=== PATIENT | female | born 1945 | race Caucasian/White ===

== ENCOUNTER 2023-05-24 08:29 | Day surgery (SDC) | payer MEDICARE, SELFPAY ==
[2023-05-17 10:52] VITALS: BMI 28.7
--- NOTE | 2023-05-21 08:08 | MHC.SHP ---
Pre-Procedural Eval Section A Date of Service: 05/21/23 The patient is an INPATIENT: No Changes since office visit: No Cold of Flu in the past 2 weeks, No New Medical Problems, No Changes in Medication and No Patient answered all questions The History & Physical has been completed within 30 days and I have reviewed it.: Yes Section B Chief Complaint: Age-related nuclear cataract, right eye Allergies: Allergies Allergy/AdvReac Type Severity Reaction Status Date / Time nut - unspecified Allergy Unknown Verified 05/17/23 10:46 Plan Diagnosis/Plan: Unchanged I have reviewed the history and physical and performed a pertinent physical examination on my patient. No changes have occurred unless specified. Time Spent With Patient Time: Total time managing care of this patient today ____ minutes.
--- NOTE | 2023-05-21 10:35 | P.CONAN_ITS ---
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 If so, by whom?: No Advance Directives: No Advance Directives Information Provided: Yes Advance Directives on File: No Recently lost weight without trying: No Eating poorly because of decreased appetite: No Nutrition Risks: No Nutritional Risk Patient : No : No Poor oral hygiene: No Meds Allergies Allergy/AdvReac Type Severity Reaction Status Date / Time nut - unspecified Allergy Unknown Verified 05/17/23 10:46 Home Medications Medication Instructions Recorded Confirmed Last Taken Type aspirin 81 mg tablet,delayed 81 mg PO DAILY 05/17/23 05/17/23 Unknown History release lisinopril 20 mg tablet 20 mg PO DAILY 05/17/23 05/17/23 Unknown History multivitamin 1 tab PO DAILY 05/17/23 05/17/23 Unknown History rosuvastatin 20 mg tablet 20 mg PO DAILY 05/17/23 05/17/23 Unknown History Exam Exam Date and Time: May 21, 2023 1035 Height,Weight and Vital Signs: Height 5 ft 1 in Weight 68.946 kg Assessment and Plan Assessment Anesthesia Assessment: Chart Reviewed Documented by User: Mireya Mccartney MD 05/24/23 10:46 [facility] Past Medical History Medical History Chronic otitis externa Diverticulosis Glucose intolerance HTN (hypertension) Hypercholesteremia Syncope TIA (transient ischemic attack) Surgical History Surgical History H/O colonoscopy Hx of appendectomy History of Problems with Anesthesia: No Social History Social History 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 If so, by whom?: No Advance Directives: No Advance Directives Information Provided: Yes Advance Directives on File: No Recently lost weight without trying: No Eating poorly because of decreased appetite: No Nutrition Risks: No Nutritional Risk Patient : No : No Poor oral hygiene: No Meds Allergies Allergy/AdvReac Type Severity Reaction Status Date / Time nut - unspecified Allergy Unknown Verified 05/17/23 10:46 Home Medications Medication Instructions Recorded Confirmed Last Taken Type aspirin 81 mg tablet,delayed 81 mg PO DAILY 05/17/23 05/17/23 Unknown History release lisinopril 20 mg tablet 20 mg PO DAILY 05/17/23 05/17/23 Unknown History multivitamin 1 tab PO DAILY 05/17/23 05/17/23 Unknown History rosuvastatin 20 mg tablet 20 mg PO DAILY 05/17/23 05/17/23 Unknown History Exam Airway Mallampati Class: III TM Dist: >3cm Neck ROM: Full Loose/Missing/Broken Teeth: No Heart: RRR Lungs: CTA Assessment and Plan Assessment Anesthesia Assessment: Anesthesia Plan Discussed Final Anesthetic Review History of Problems with Anesthesia: No NPO: Yes ASA Class: II Final Preanesthetic Review: Meds/Allgs Chart Reviewed, Consent Obtained/Reviewed and Anes Risks/Benef Reviewed Patient Risk: Low Procedure Risk: Low Anesthetic Plan Anesthetic Plan: MAC: Disposition: Standard PACU
[2023-05-24 10:25] VITALS: BP 194/88; PULSE 83; RESP 16; TEMP 36.8; O2SAT 96
--- NOTE | 2023-05-24 11:16 | HO.PNOPHT ---
Ophthalmology Procedure Procedure Date of Service: 05/24/23 Ophthalmology Viscoelastic: Healjacqueline Reyest Dual Pack Pro Ophthalmology Lenses: TECNIS [id number] (15.5) Procedure Notes: PREOPERATIVE DIAGNOSIS: Decreased visual acuity right eye secondary to cataract POSTOPERATIVE DIAGNOSIS: Same PROCEDURE: Right cataract extraction with intraocular lens insertion SURGEON: Hans Vann M.D. ANESTHESIA: Topical/MAC ESTIMATED BLOOD LOSS: None COMPLICATIONS: None After obtaining informed consent, the patient was brought to the operating room suite and placed in the supine position. After adequate sedation per anesthesia, topical drops of Tetracaine were given to the right eye. The eye was then prepped and draped in the usual sterile fashion. The operating room microscope was then positioned over the operative eye and a lid speculum placed. A paracentesis was created. Viscoelastic was then instilled into the anterior chamber. A three plane incision was then created temporally, utilizing a 2.85 mm keratome. Capsulotomy forceps were then utilized to create a circular tear capsulotomy. Hydrodissection and hydrodelineation were carried out until adequate mobilization of the nucleus occurred. Phacoemulsification was then utilized to remove the dense central nucleus followed by removal of the cortical material utilizing the automated aspiration irrigation unit. Viscoelastic was instilled into the posterior capsular bag followed by placement of a posterior chamber intraocular lens without difficulty. The residual Viscoelastic was then removed utilizing the automated IA machine. The wound was checked and found to be watertight. The patient tolerated the procedure well and the lid speculum was removed. Intracameral injection of Vigamox 0.1 mL followed by a subtenon injection of Kenalog-40 0.2 mL were administered. The patient will be seen in the a.m.
[2023-05-24 11:42] VITALS: BP 147/87; PULSE 76; RESP 16; TEMP 36.3; O2SAT 97
== END 2023-05-24 12:07 | disposition home or self-care (01) ==
PROVIDERS: PCP Internal Medicine; Visit Provider Ophthalmology
PROC: (CPT 66985; principal; 2023-05-24 11:20)
DX: H25.11 Age-related nuclear cataract, right eye (principal); H54.7 Unspecified visual loss; I10 Essential (primary) hypertension; E78.00 Pure hypercholesterolemia, unspecified; Z86.73 Personal history of transient ischemic attack (TIA), and cerebral infarction without residual deficits; Z87.891 Personal history of nicotine dependence; Z79.82 Long term (current) use of aspirin; Z79.899 Other long term (current) drug therapy; Z79.02 Long term (current) use of antithrombotics/antiplatelets
CPT/HCPCS: 66984; J2250; J3010; J3301; V2632

== ENCOUNTER 2023-06-07 07:59 | Day surgery (SDC) | payer MEDICARE, SELFPAY ==
[2023-05-17 10:56] VITALS: BMI 28.7
--- NOTE | 2023-06-04 08:07 | MHC.SHP ---
Pre-Procedural Eval Section A Date of Service: 06/04/23 The patient is an INPATIENT: No Changes since office visit: No Cold of Flu in the past 2 weeks, No New Medical Problems, No Changes in Medication and No Patient answered all questions The History & Physical has been completed within 30 days and I have reviewed it.: Yes Section B Chief Complaint: Age-related nuclear cataract, left eye Allergies: Allergies Allergy/AdvReac Type Severity Reaction Status Date / Time nut - unspecified Allergy Unknown Verified 05/17/23 10:46 Plan Diagnosis/Plan: Unchanged I have reviewed the history and physical and performed a pertinent physical examination on my patient. No changes have occurred unless specified. Time Spent With Patient Time: Total time managing care of this patient today ____ minutes.
--- NOTE | 2023-06-04 14:52 | P.CONAN_ITS ---
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 If so, by whom?: No Advance Directives: No Advance Directives Information Provided: Yes Advance Directives on File: No Recently lost weight without trying: No Eating poorly because of decreased appetite: No Nutrition Risks: No Nutritional Risk Patient : No : No Poor oral hygiene: No Meds Allergies Allergy/AdvReac Type Severity Reaction Status Date / Time nut - unspecified Allergy Unknown Verified 05/17/23 10:46 Home Medications Medication Instructions Recorded Confirmed Last Taken Type aspirin 81 mg tablet,delayed 81 mg PO DAILY 05/17/23 05/17/23 Unknown History release lisinopril 20 mg tablet 20 mg PO DAILY 05/17/23 05/17/23 Unknown History multivitamin 1 tab PO DAILY 05/17/23 05/17/23 Unknown History rosuvastatin 20 mg tablet 20 mg PO DAILY 05/17/23 05/17/23 Unknown History Exam Exam Date and Time: June 04, 2023 1452 Height,Weight and Vital Signs: Height 5 ft 1 in Weight 68.946 kg Assessment and Plan Assessment Anesthesia Assessment: Chart Reviewed Final Anesthetic Review History of Problems with Anesthesia: No
--- NOTE | 2023-06-07 08:57 | PC.NURSE ---
Dr. Tran aware that patient stopped her blood pressure and cholesterol meds approx. one week ago. I was sick and taking medications from my doctor and didn't want to mix them. Okay to proceed per doctor.
[2023-06-07 08:58] VITALS: BP 163/75; PULSE 68; RESP 18; TEMP 36.6; O2SAT 98
[2023-06-07] MEDS: Tetracaine HCl/PF 0.5% Oph Sol 4 ML DROPS 1 DROP EYE-LEFT (09:00)
[2023-06-07] MEDS: Cyclopentolate 1 % Ophth Sol 2 ML DRPBTL 1 DROP EYE-LEFT ×3 (09:00→09:10)
[2023-06-07] MEDS: Ketorolac Tromethamine 0.5% Op 5 ML DROPS 1 DROP EYE-LEFT ×3 (09:00→09:10)
[2023-06-07] MEDS: Phenylephrine HCL 2.5% Oph SoL 2 ML BOTTLE 1 DROP EYE-LEFT ×3 (09:00→09:10)
--- NOTE | 2023-06-07 09:00 | HO.ANESPROP2 ---
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 If so, by whom?: No Advance Directives: No Advance Directives Information Provided: Yes Advance Directives on File: No Recently lost weight without trying: No Eating poorly because of decreased appetite: No Nutrition Risks: No Nutritional Risk Patient : No : No Poor oral hygiene: No Meds Allergies Allergy/AdvReac Type Severity Reaction Status Date / Time nut - unspecified Allergy Unknown Verified 05/17/23 10:46 Active Medications: Current Medications Lactated Ringer's (Lr) 500 mls @ 50 mls/hr IV .Q10H JAYDA Stop: 06/07/23 18:44 Povidone Iodine (Povidone Iodine 5 % Ophth Soln 30 Ml Bottle) 1 appl EYE-LEFT PREOP PRN PRN Reason: Pre-Op Surgical Implant Prophy Home Medications Medication Instructions Recorded Confirmed Last Taken Type aspirin 81 mg tablet,delayed 81 mg PO DAILY 05/17/23 05/17/23 Unknown History release lisinopril 20 mg tablet 20 mg PO DAILY 05/17/23 05/17/23 Unknown History multivitamin 1 tab PO DAILY 05/17/23 05/17/23 Unknown History rosuvastatin 20 mg tablet 20 mg PO DAILY 05/17/23 05/17/23 Unknown History Exam Exam Date and Time: June 07, 2023 0900 Height,Weight and Vital Signs: Height 5 ft 1 in Weight 68.946 kg Last Vital Signs Temp 97.9 F 06/07/23 08:58 Pulse 68 06/07/23 08:58 Resp 18 06/07/23 08:58 BP 163/75 H 06/07/23 08:58 Pulse Ox 98 06/07/23 08:58 O2 Del Method Room Air 06/07/23 08:58 Airway Mallampati Class: II TM Dist: >3cm Neck ROM: Full Lungs: clear Assessment and Plan Assessment Anesthesia Assessment: Anesthesia Plan Discussed and Chart Reviewed Final Anesthetic Review Family History of Problems with Anesthesia: No History of Problems with Anesthesia: No NPO: Yes ASA Class: II Final Preanesthetic Review: No Changes in Pt Med Stat, Meds/Allgs Chart Reviewed, Consent Obtained/Reviewed and Anes Risks/Benef Reviewed Patient Risk: Intermediate Procedure Risk: Low Anesthetic Plan Anesthetic Plan: MAC: Disposition: Standard PACU
[2023-06-07] MEDS: Tropicamide 1 % Ophth Sol 3 ML BTL 1 DROP EYE-LEFT ×3 (09:01→09:10)
[2023-06-07] MEDS: Lactated Ringers 500 ML 50 ML IV (09:01)
--- NOTE | 2023-06-07 10:15 | HO.PNOPHT ---
Ophthalmology Procedure Procedure Date of Service: 06/07/23 Ophthalmology Viscoelastic: Healjacqueline Duet Dual Pack Pro Ophthalmology Lenses: TECNIS [id number] (15.5) Procedure Notes: PREOPERATIVE DIAGNOSIS: Decreased visual acuity left eye secondary to cataract POSTOPERATIVE DIAGNOSIS: Same PROCEDURE: Left cataract extraction with intraocular lens insertion SURGEON: Hans Vann M.D. ANESTHESIA: Topical/MAC ESTIMATED BLOOD LOSS: None COMPLICATIONS: None After obtaining informed consent, the patient was brought to the operation room suite and placed in the supine position. After adequate sedation per anesthesia, topical drops of Tetracaine were given to the left eye. The eye was then prepped and draped in the usual sterile fashion. The operating room microscope was then positioned over the operative eye and a lid speculum placed. A paracentesis was created. Viscoelastic was then instilled into the anterior chamber. A three plane incision was then created temporally, utilizing a 2.85 mm keratome. Capsulotomy forceps were then utilized to create a circular tear capsulotomy. Hydrodissection and hydrodelineation were carried out until adequate mobilization of the nucleus occurred. Phacoemulsification was then utilized to remove the dense central nucleus followed by removal of the cortical material utilizing the automated aspiration irrigation unit. Viscoat elastic was instilled into the posterior capsular bag followed by placement of a posterior chamber intraocular lens without difficulty. The residual Viscoat elastic was then removed utilizing the automated IA machine. The wound was check and found to be watertight. The patient tolerated the procedure well and the lid speculum was removed. Intracameral injection of Vigamox 0.1 mL followed by a subtenon injection of Kenalog-40 0.2 mL were administered. The patient will be seen in the a.m.
[2023-06-07 10:46] VITALS: BP 159/76; PULSE 74; RESP 18; TEMP 36.6; O2SAT 98
== END 2023-06-07 10:49 | disposition home or self-care (01) ==
PROVIDERS: PCP Internal Medicine; Visit Provider Ophthalmology
PROC: (CPT 66985; principal; 2023-06-07 10:00)
DX: H25.12 Age-related nuclear cataract, left eye (principal); H54.7 Unspecified visual loss; I10 Essential (primary) hypertension; Z86.73 Personal history of transient ischemic attack (TIA), and cerebral infarction without residual deficits; Z87.891 Personal history of nicotine dependence; Z79.82 Long term (current) use of aspirin; Z79.899 Other long term (current) drug therapy
CPT/HCPCS: 66984; J2250; J3301; V2632